=== PATIENT | male | born 1995 | race Caucasian/White ===

== ENCOUNTER 2021-02-06 13:40 | Emergency (ER) | payer OTHER ==
[~2021-02-06] VITALS: Ht 185.4 cm; Wt 102.5 kg
[2021-02-06 13:42] VITALS: BP 126/62
--- NOTE | 2021-02-06 13:52 | NUR ---
25 y/o male biba from [facility] s/p heroin overdose. Pt given 8mg narcan in route. When found by ems pt O2 75% on room air, and unresponsive. After receiving narcan pt awake and alert. Last heroin use 8 months ago. Acting appropriate. Placed on bedside monitor. medhx: denies
--- NOTE | 2021-02-06 13:53 | NUR ---
Pt placed on 2L NC at this time due to oxygen 88-89% on room air
--- NOTE | 2021-02-06 14:10 | NUR ---
Dr Nguyen at bedside evaluating patient
[2021-02-06] MEDS ORDERED: NALO4SPR NS (14:16)
--- NOTE | 2021-02-06 14:45 | NUR ---
Pt moved to [facility] while waiting for ride. PT attemting to call ride
--- NOTE | 2021-02-06 15:15 | NUR ---
Patient does not wish to proceed with medical care recommended by DR PERALES. PT LEFT WITHOUT SIGNING AMA FORM.
== END 2021-02-06 15:15 | disposition left against medical advice (07) ==
LOC: EDBD → MED 13:40
DX: T40.1X1A Poisoning by heroin, accidental (unintentional), initial encounter (principal); Y92.89 Other specified places as the place of occurrence of the external cause
CPT/HCPCS: 99283

== ENCOUNTER 2021-02-06 16:31 | Inpatient (IN) | payer OTHER ==
[~2021-02-06] VITALS: Ht 185.4 cm; Wt 98.0 kg
--- NOTE | 2021-02-06 00:09 | NUR ---
2338 GAVE PATIENT HIS HHNTX EARLY. PATIENTS SATS ON ROOM AIR ARE 77%. PLACED PATIENT BACK ON 3LNC POST HHNTX. SATS ARE 94% AT THIS TIME ON 3LNC. PATIENTS BS ARE DECREASED BILAT AT THIS TIME
[~2021-02-06 16:31] MED LIST: NALO4SPR NS
[2021-02-06 16:42] VITALS: BP 121/72
[2021-02-06] MEDS ORDERED: ALBUTEROL SULFATE/IPRATROPIU 3 ML SOL IH ONE ×2 (17:00→23:38)
--- NOTE | 2021-02-06 17:05 | NUR ---
25 Y/O MALE C/O COUGHING UP BLOOD TODAY. PT WAS BIBA EARLIER TODAY FOR OVERDOSE ON BLACK TAR HEROIN. PT WAS GIVEN 8MG NARCAN INH AND THEN LEFT AMA. PT RETURNED BECAUSE HE WAS COUGHING UP BLOOD AND THE TASTE MADE HIM VOMIT. PT SPO2 88% ON RA, PT PLACED ON 2L N/C. LUNG SOUNDS CLEAR, NO SIGNS OF DISTRESS. PT DENIES ABDOMINAL PAIN. PT REPORTS CHEST WALL DISCOMFORT S/P STERNAL RUB FROM MEDICS EARLIER TODAY. PT A/O X4 WITH EVEN AND UNLABORED RESPIRATIONS. PT ATTACHED TO ADMINISTRATIVE AND PROGRAM SPECIALIST. PMH: HEP C NKDA
--- NOTE | 2021-02-06 17:10 | NUR ---
EMT AT BEDSIDE FOR EKG
--- NOTE | 2021-02-06 17:15 | NUR ---
RT AT BEDSIDE FOR BREATHING TREATMENT AND ABG
--- NOTE | 2021-02-06 17:39 | NUR ---
RAD AT BEDSIDE
--- NOTE | 2021-02-06 18:15 | NUR ---
DR PERALES AT BEDSIDE FOR ULTRASOUND IV
[2021-02-06 18:19] LABS: BASOPHILS % (AUTO) 0.1 % (0.0-2.0); HEMATOCRIT 45.2 % (36-52); HEMOGLOBIN 15.5 g/dL (12.0-18.0); LYMPHOCYTES # (AUTO) 0.5 K/uL (2.0-11.5); LYMPHOCYTES % (AUTO) 3.2 % (20.5-51.1); MEAN CORPUSCULAR HEMOGLOBIN 31 pg (27-31); MEAN CORPUSCULAR HGB CONC 34 g/dL (33-37); MEAN CORPUSCULAR VOLUME 90.8 fL (80-94); MONOCYTES % (AUTO) 6.2 % (1.7-9.3); NEUTROPHILS # (AUTO) 14.1 K/uL (1.8-7.7); NEUTROPHILS % (AUTO) 90.5 % (42.2-75.2); PLATELET COUNT (AUTO) 201 K/uL (140-450); RED BLOOD CELL COUNT(AUTO) 4.98 MIL/uL (4.20-6.10); WHITE BLOOD COUNT (AUTO) 15.6 K/uL (4.8-10.8)
[2021-02-06 18:29] LABS: ANION GAP 18.6 (8-16); CARBON DIOXIDE 25.4 mmol/L (21-32); CREATININE 1.1 mg/dL (0.6-1.3)
[2021-02-06] MEDS ORDERED: cefTRIAXone 1,000 MG VIAL ONE (18:29)
--- NOTE | 2021-02-06 19:20 | NUR ---
REPORT GIVEN TO MYRIAM RN, TRANSFER OF CARE AT THIS TIME
--- NOTE | 2021-02-06 19:23 | NUR ---
AUTH NUMBER: [id number]
--- NOTE | 2021-02-06 19:33 | NUR ---
FACESHEET FAXED TO [employer] [facility]
--- NOTE | 2021-02-06 20:00 | NUR ---
PT LAYING IN BED FIDGETING AND TANGLED IN ALL LINES. GOWN OFF. ASSISTED TO PUT GOWN BACK ON AND PLACED PT BACK ON MONITOR. O2 SAT IN HIGH 80s PLACED ON O2. HAVING DIFFICULTY KEEPING [address]. INDICATES "IT IRRITES MY NOSE" PT AA/Ox4 BUT DROWSY. PUPILS 2 AND REACTIVE. NAD NOTED AT THIS TIME. SPEAKS FREELY ABOUT DRUG USE HX AND ATTEMPTS AT SOBRIETY. THIS RN PROVIDES REASSURANCE AND ACTIVE LISTENING.
[2021-02-06] MEDS ORDERED: HYDROcodone/APAP 5/325 MG 1 TAB TAB PO PRN (20:45)
[2021-02-06] MEDS ORDERED: POTASSIUM CHLORIDE 10 MEQ TABER PO PRN (20:45)
[2021-02-06] MEDS ORDERED: ACETAMINOPHEN 325 MG TAB PO PRN (20:45)
[2021-02-06] MEDS ORDERED: MAGNESIUM OXIDE 400 MG TAB PO PRN (20:45)
[2021-02-06] MEDS ORDERED: MORPHINE SULFATE 4 MG/ML SYR IVP PRN (20:45)
[2021-02-06 22:35] VITALS: BP 117/73
--- NOTE | 2021-02-06 22:39 | NUR ---
Patient will be admitted to care of DR. MATIAS. Admited to TELEMETRY. Will go to room 112B. Belongings list completed. Report to GHULAM HELLER.
--- NOTE | 2021-02-06 22:40 | NUR ---
RECEIVED REPORT FROM ER NURSE OVER THE PHONE, PT BROUGHT UP [employer]IA [employer] TO ROOM 112. PT AMBULATED TO BED B. HE IS AOX4, HE ON 2 LITERS VIA N/C. LUNG SOUNDS CLEAR BUT DIMINISHED. HIS SKIN IS INTACT. PT ALSO DECLINES TO WEAR HOSPITAL GOWN. HE WAS PLACED ON TELEMETRY MONITORING. ALTHOUGH PT IS AOX4, HE HAS PERIODS OF DROWSINESS, AND HAD ALREADY PULLED OUT IV SITE IN THE ER. PT NOW PULLS OFF HIS N/C. 02 WAS 85-88% ON ROOM AIR. PT REMINDED TO KEEP 02 ON, BECAUSE PT IS UNDER 90% 02 ON ROOM AIR. PT VERBALIZED UNDERSTANDING. HE HAS NO C/O VOICED OF PAIN OR DISTRESS NOTED. OTHER V/S FOLLOWS: T 98.0 P 100 R 20 B/P 117/73 02 90% WITH 2 LITERS VIA N/C. MRSA SWAB DONE , ADMISSION QUESTIONS ASKED AND ANSWERED. PT GIVEN REQUESTED FOOD AND DRINK. ALL UNIVERSAL FALLS PRECAUTIONS IN PLACE.
[2021-02-07] VITALS (7 sets, daily range): BP systolic 124–142; BP diastolic 56–95
[2021-02-07] MEDS: ALBUTEROL SULFATE/IPRATROPIU 3 ML SOL IH SCH ×4 (01:00→19:34)
--- NOTE | 2021-02-07 01:08 | NUR ---
ROUNDS DONE, PT HAD 02 OFF, HE WAS REMINDED TO KEEP SUPPLEMENTAL 02 ON HIS NOSE, PT VERBALIZED UNDERSTANDING.
--- NOTE | 2021-02-07 02:30 | NUR ---
ROUNDS DONE , PUT UP TO TOILET AND BACK , SUPPLEMENTAL 02 AT 3 LITERS VIA N/C PLACED BACK OVER HIS NOSE. PT CONTINUES ON TELEMONITORING. HE DENIES ANY PAIN, ALL UNIVERSAL FALLS PRECAUTIONS IN PLACE.
--- NOTE | 2021-02-07 04:00 | NUR ---
ROUNDS DONE PT IN BED HE CONTINUES ON 3 LITERS VIA N/C. NO C/O VOICED V/S FOLLOWS: T 98.0 P 100 R 22 B/P 117/73 02 91% ON 3 LITERS N/C. ALL UNIVERSAL PRECAUTIONS IN PLACE.
[2021-02-07 06:53] LABS: BASOPHILS % (AUTO) 0.1 % (0.0-2.0); EOSINOPHILS % (AUTO) 0.3 % (0.0-4.0); HEMATOCRIT 43.8 % (36-52); HEMOGLOBIN 15.1 g/dL (12.0-18.0); LYMPHOCYTES # (AUTO) 1.4 K/uL (2.0-11.5); LYMPHOCYTES % (AUTO) 14.8 % (20.5-51.1); MEAN CORPUSCULAR HEMOGLOBIN 31 pg (27-31); MEAN CORPUSCULAR HGB CONC 34 g/dL (33-37); MEAN CORPUSCULAR VOLUME 91.3 fL (80-94); MONOCYTES # (AUTO) 0.7 K/uL (0.8-1.0); MONOCYTES % (AUTO) 7.4 % (1.7-9.3); NEUTROPHILS # (AUTO) 7.1 K/uL (1.8-7.7); NEUTROPHILS % (AUTO) 77.4 % (42.2-75.2); PLATELET COUNT (AUTO) 198 K/uL (140-450); RED CELL DISTRIBUTION WIDTH 12.8 % (11.6-13.7); WHITE BLOOD COUNT (AUTO) 9.2 K/uL (4.8-10.8)
[2021-02-07 07:02] LABS: PROTHROMBIN TIME 10.3 secs (10.8-13.4)
[2021-02-07 07:06] LABS: ANION GAP 13.1 (8-16); CARBON DIOXIDE 29.9 mmol/L (21-32); CREATININE 0.9 mg/dL (0.6-1.3)
--- NOTE | 2021-02-07 07:08 | NUR ---
PATIENT HAS BEEN SCREENED AND CATEGORIZED MODERATE NUTRITION RISK. PATIENT WILL BE SEEN WITHIN 3-5 DAYS OF ADMISSION. 02/10/21-02/12/21 CHOLO SELF MS, RDN
--- NOTE | 2021-02-07 07:32 | NUR ---
ENDORSED TO MORNING SHIFT NURSE FOR CONTINUITY OF CARE. PT IS STABLE.
--- NOTE | 2021-02-07 07:34 | NUR ---
RECEIVED BEDSIDE REPORT FROM SUPERVISOR FABRICATION AND ASSEMBLY NURSE FOR CONTINUITY OF CARE. PT IS AOX4, ABLE TO MAKE NEEDS KNOWN. RESPIRATIONS EVEN AND UNLABORED. ON 3L NC WITH NO RESPIRATORY DISTRESS NOTED. SKIN IS WARM, DRY, AND INTACT. HAS NO IV ACCESS, PT PULLED OUT US GUIDED IV ACCESS LAST NIGHT. WILL ATTEMPT TO MANUALLY PLACE IV. ABD IS SOFT, FLAT, AND NON-DISTENDED. BOWEL SOUNDS ACTIVE IN ALL QUADRANTS. PLAN OF CARE DISCUSSED. SAFETY PRECAUTIONS IN PLACE. CALL LIGHT WITHIN REACH. WILL CONTINUE TO MONITOR.
[2021-02-07] MEDS: ENOXAPARIN 40 MG/0.4 ML SYR SUBQ SCH (09:00)
--- NOTE | 2021-02-07 09:15 | NUR ---
FOUND PATIENT UNRESPONSIVE, HAS PULSE, GASPING FOR AIR. RAPID RESPONSE WAS CALLED.
--- NOTE | 2021-02-07 09:20 | NUR ---
ARRIVED TO PTS ROOM - PT UNRESPONSIVE - BVM AND SUCTION SET UP - BAGGED PT DUE TO UNRESPONSIVENESS - PT NO LONGER HAD A LINE - RN INSERTED IO - AFTER NARCAN WAS GIVEN PT WOKE UP SUDDENLY - PT SLIGHTLY COMBATIVE AT THIS TIME - PT TO BE TRANSFERRED TO ICU FOR MONITORING.
--- NOTE | 2021-02-07 09:24 | NUR ---
NO IV ACCESS. MD INSERTED AN IO ACCESS ON LEFT LEG. 2 MG OF NARCAN WAS GIVEN IVP. PATIENT BECAME RESPONSIVE AND CONSCIOUS.
--- NOTE | 2021-02-07 09:25 | NUR ---
DR. MORRIS WAS AT PATIENT BEDSIDE WHEN PATIENT BECAME RESPONSIVE. RECEIVED NEW ORDERS FOR PT TO TRANSFER TO ICU TO CONTINUE FOR OPIOID OVERDOSE.
--- NOTE | 2021-02-07 09:35 | NUR ---
PATIENT TRANSFERRED TO ICU BED 3
--- NOTE | 2021-02-07 09:45 | NUR ---
PATIENT HANDED AN UNKNOWN DRUG SUBSTANCE. PT STATED HE TOOK SOME AFTER EATING BREAKFAST. CONTACTED SECURITY TO HOLD BELONGINGS AND PABLO MARTIN WILL BE CONTACTED.
--- NOTE | 2021-02-07 09:56 | NUR ---
TALKED TO CK IN [facility], REPORTED SAW A SMALL PLASTIC WITH BROWN COLOR SUBSTANCE, POSSIBLE DRUGS IN HIS UNDERWEAR, PER CK WILL SEND POLICE FOR THE REPORT. BELONGINGS ALSO SEND IN THE SECURITY FOR SAFETY, BODY CHECK DONE BY STAFF
--- NOTE | 2021-02-07 10:00 | NUR ---
CONTACTED DR. PATEL AND NOTIFIED HIM REGARDING PATIENT'S CONDITION
--- NOTE | 2021-02-07 10:00 | NUR ---
PATIENT TRANSFERRED TO ICU AT THIS TIME AFTER RAPID CALLED, NARCAN GIVEN DURING RAPID. PHYSICAL ASSESSMENT PERFORMED ON PATIENT. FOUND SOME SUBSTANCE BLACK IN COLOR, POSSIBLE ILLICIT DRUGS, IN GROIN AREA, POLICE CALLED BY FUR POINTER AND GAVE REPORT. CHECKED RECTAL CAVITY FOR FURTHER SUBSTANCE, NONE FOUND. PATIENT CURRENTLY AWAKE, SPITTING RED COLORED SPUTUM INTERMITTENTLY. RIGHT I/O IN PLACE. AAOX1. SKIN INTACT. BEDSIDE MONITORING PLACED ON PATIENT. , CRITICAL CARE MD, [facility] AWARE OF PATIENT'S CONDITION HE WAS PRESENT DURING RAPID RESPONSE. NOTIFIED DR. PATEL AT THIS TIME WELL. SAFETY MEASURES IN PLACE. WILL CONTINUE TO MONITOR.
--- NOTE | 2021-02-07 10:26 | NUR ---
CALLED RT FOR PT O2 SATURATION LEVELS.
--- NOTE | 2021-02-07 10:33 | NUR ---
RT AT BEDSIDE.
--- NOTE | 2021-02-07 10:34 | NUR ---
PICC HAS BEEN ORDER AND PT CONSENT HAS BEEN OBTAIN. PICC LINE IS ON STANDBY WAITING FOR MD SIGNATURE.
--- NOTE | 2021-02-07 11:10 | NUR ---
POLICE AT BEDSIDE. UNKNOWN SUBSTANCE FOUND ON PT WAS HANDED TO POLICE.
--- NOTE | 2021-02-07 12:50 | NUR ---
DR. PATEL AT BEDSIDE. SIGNED CONSENT FOR PICC LINE. NARCAN PRN PER DR KELLER.
--- NOTE | 2021-02-07 13:15 | NUR ---
SPOKE TO MINDY OVER THE PHONE FOR PICC LINE INSERTION. WILL CALL BACK BEFORE ARRIVAL TO GET EQUIPMENT READY.
--- NOTE | 2021-02-07 13:22 | NUR ---
RT AT BEDSIDE.
--- NOTE | 2021-02-07 13:35 | NUR ---
RADIOLOGY AT BEDSIDE.
--- NOTE | 2021-02-07 17:25 | NUR ---
MINDY AT BEDSIDE INSERTING PICC LINE.
--- NOTE | 2021-02-07 17:31 | NUR ---
RADIOLOGY CALLED VIA PHONE FOR PICC LINE PLACEMENT PER MD ORDERS.
--- NOTE | 2021-02-07 17:45 | NUR ---
RADIOLOGY AT BEDSIDE.
--- NOTE | 2021-02-07 18:01 | NUR ---
ECHOCARDIOGRAM AT BEDSIDE.
--- NOTE | 2021-02-07 19:20 | NUR ---
ENDORSED CARE TO [employer] SUPERVISOR NURSE FOR CONTINUITY OF CARE.
--- NOTE | 2021-02-07 19:30 | NUR ---
ASSUMED CARE OF PT.INITIAL ASSESSMENT COMPLETED.PT AWAKE ALERT AND ORIENTED, EATING DINNER.SR NOTED ON MONITOR.ON 02NC AT 11LPM.W/PICC TO ASTRID INTACT W/GOOD BLOOD RETURN TO BOTH PORTS, INFUSING NS AT 5ML/HR.PT ON REGULAR DIET.NO N/V NOTED.PT CONTINENT OF URINE,VOIDS FREELY.ABLE TO MOVE ALL EXTREMITIES.SKIN INTACT.DENIES PAIN WHEN ASKED.WILL CONTINUE TO CLOSELY MONITOR PT.
--- NOTE | 2021-02-07 19:34 | NUR ---
PT WAS LYING IN BED ON 11 LPM N/C NO SIGNS OF RESPIRATORY DISTRESS SATING 98%. GAVE TX AND TOLERATED WELL WILL CONTINUE TO MONITOR.
--- NOTE | 2021-02-07 20:00 | NUR ---
02NC DECREASED TO 6LPM.02SAT 97% AT THIS TIME.WILL CONTINUE TO MONITOR
--- NOTE | 2021-02-07 22:15 | NUR ---
PT ASLEEP; NOT IN ANY DISTRESS.STILL ON 02NC AT 6LPM.02SAT 98%.NO S/SX OF PAIN NOTED
[2021-02-08] VITALS: BP 118/73
--- NOTE | 2021-02-08 | NUR ---
PT ASLEEP;EASILY AROUSABLE.NOT IN ANY DISTRESS AT THIS TIME.DENIES PAIN
[2021-02-08] MEDS: ALBUTEROL SULFATE/IPRATROPIU 3 ML SOL IH SCH ×2 (00:36→07:17)
--- NOTE | 2021-02-08 01:00 | NUR ---
PT AWAKE; REQUESTED FOR SANDWICH; GIVEN.DENIES N/V. PTS 02SAT GOES DOWN TO 80'S WHEN PT REMOVES 02 SUPPLEMENT; INCENTIVE SPIROMETER GIVEN AND INSTRUCTED HOW TO USE IT BY RT.PT VERBALIZED UNDERSTANDING
[2021-02-08 02:00] VITALS: BP 120/60
[2021-02-08 04:00] VITALS: BP 107/47
--- NOTE | 2021-02-08 04:11 | NUR ---
PT WAS LYING IN BED W/ HOB ELEVATED ON 2 LPM N/C NO SIGNS OF RESPIRATORY DISTRESS SATING 92% WILL CONTINUE TO MONITOR.
--- NOTE | 2021-02-08 05:00 | NUR ---
PT AWAKE;REQUESTED FOR SNACKS,GIVEN.NO SOB NOTED.02NC AT 3LPM.DENIES PAIN
[2021-02-08 05:30] LABS: BASOPHILS % (AUTO) 0.2 % (0.0-2.0); EOSINOPHILS # (AUTO) 0.1 K/uL (0-0.4); EOSINOPHILS % (AUTO) 1.2 % (0.0-4.0); HEMOGLOBIN 13.5 g/dL (12.0-18.0); LYMPHOCYTES # (AUTO) 1.1 K/uL (2.0-11.5); LYMPHOCYTES % (AUTO) 19.4 % (20.5-51.1); MEAN CORPUSCULAR HEMOGLOBIN 32 pg (27-31); MEAN CORPUSCULAR HGB CONC 35 g/dL (33-37); MEAN CORPUSCULAR VOLUME 90.8 fL (80-94); MONOCYTES # (AUTO) 0.5 K/uL (0.8-1.0); MONOCYTES % (AUTO) 8.9 % (1.7-9.3); NEUTROPHILS # (AUTO) 3.9 K/uL (1.8-7.7); NEUTROPHILS % (AUTO) 70.3 % (42.2-75.2); PLATELET COUNT (AUTO) 151 K/uL (140-450); RED BLOOD CELL COUNT(AUTO) 4.29 MIL/uL (4.20-6.10); RED CELL DISTRIBUTION WIDTH 12.8 % (11.6-13.7); WHITE BLOOD COUNT (AUTO) 5.5 K/uL (4.8-10.8)
[2021-02-08 05:46] LABS: ANION GAP 9.9 (8-16); CARBON DIOXIDE 31.7 mmol/L (21-32); CREATININE 0.9 mg/dL (0.6-1.3); POTASSIUM 3.6 mmol/L (3.5-5.1)
[2021-02-08 06:00] VITALS: BP 112/62
--- NOTE | 2021-02-08 06:10 | NUR ---
pts condition remains unchanged.on 02nc at 3lpm.sr on monitor.denies pain. offered morning care; ;pt refused "its too cold" will do it after breakfast.
[2021-02-08 06:33] LABS: PROTHROMBIN TIME 9.9 secs (10.8-13.4)
[2021-02-08 08:00] VITALS: BP 124/84
[2021-02-08] MEDS: ENOXAPARIN 40 MG/0.4 ML SYR SUBQ SCH (08:17)
--- NOTE | 2021-02-08 08:17 | NUR ---
SCHEDULED MEDICATIONS DUE GIVEN. ENOXAPARIN HELD AT THIS TIME PATIENT VOMITING BRIGHT RED BLOOD YESTERDAY. WILL CONTINUE TO MONITOR.
--- NOTE | 2021-02-08 08:30 | NUR ---
DR. MERCER AT BEDSIDE REVIEWING PLAN OF CARE WITH PATIENT. WILL CONTINUE TO MONITOR.
[2021-02-08] MEDS ORDERED: AMOX-1000 PO (08:46)
--- NOTE | 2021-02-08 08:50 | NUR ---
DR. MORRIS AT BEDSIDE REVIEWING PLAN OF CARE WITH PATIENT. WILL CONTINUE TO MONITOR
[2021-02-08] MEDS ORDERED: PANTOPRAZOLE 40 MG INJ VIAL IVP SCH (09:00)
--- NOTE | 2021-02-08 09:19 | NUR ---
DISCHARGE INSTRUCTIONS PROVIDED TO PATIENT IN PREFERRED LANGUAGE OF [place]. INSTRUCTIONS ON ANTIBIOTIC COURSE, SIDE EFFECTS, DIET REGIMEN, DRUG ABUSE SELF-HELP AND RESOURCES, AND DISEASE MANAGEMENT OF CAP. ANSWERED ALL OF PATIENT'S QUESTIONS REGARDING DISCHARGE. PATIENT VERBALIZED UNDERSTANDING. PICC LINE REMOVED WITH MINIMAL BLOOD AND LUMEN COMPLETELY INTACT. ID BANDS REMOVED. SECURITY BROUGHT ALL OF PATIENTS BELONGINGS. ESCORTED PATIENT TO LOBBY VIA STEADY AMBULATION. PATIENT DROVE SELF. PATIENT DISCHARGE AT THIS TIME IN HIS OWN PRIVATE VEHICLE.
== END 2021-02-08 09:25 | disposition home or self-care (01) | DRG 816 ==
LOC: MED 16:31 → MTU 20:46 → MIC 02-07 09:50
PROVIDERS: ADMIT Internal Medicine; ATTEND Internal Medicine
PROC: 02HV33Z Insertion of Infusion Device into Superior Vena Cava, Percutaneous Approach (ICD-10-PCS; principal; 2021-02-07)
PROC: 3E0A3GC Introduction of Other Therapeutic Substance into Bone Marrow, Percutaneous Approach (ICD-10-PCS; 2021-02-07)
DX: T40.1X1A Poisoning by heroin, accidental (unintentional), initial encounter (principal); J96.01 Acute respiratory failure with hypoxia; J69.0 Pneumonitis due to inhalation of food and vomit; G92.8 Other toxic encephalopathy; K92.0 Hematemesis; R04.2 Hemoptysis; F17.210 Nicotine dependence, cigarettes, uncomplicated; Y92.89 Other specified places as the place of occurrence of the external cause; Z79.899 Other long term (current) drug therapy; Z86.19 Personal history of other infectious and parasitic diseases
CPT/HCPCS: 36415; 36556; 36600; 71045; 80048; 82803; 82948; 83605; 83880; 84484; 85025; 85610; 87040; 87081; 92950; 93005; 94640; 96365; 99285; C9113; J0696; J1650; J7060; Q0092